=== PATIENT | female | born 1945 | race Caucasian/White ===

== ENCOUNTER 2016-12-30 06:52 | Emergency (ER) | payer MEDICARE, MEDICAID ==
[2016-12-30] MEDS ORDERED: DILAUDID 1 MG/ML AMP ONE (08:24)
== END 2016-12-30 10:12 | disposition home or self-care (01) ==
LOC: ER 06:52
DX: M51.36 Other intervertebral disc degeneration, lumbar region (principal); Z79.899 Other long term (current) drug therapy; Z79.84 Long term (current) use of oral hypoglycemic drugs; F17.210 Nicotine dependence, cigarettes, uncomplicated
CPT/HCPCS: 72100; 96372; 99284; J1170